=== PATIENT | female | born 1945 | race Caucasian/White ===

== ENCOUNTER 2020-12-27 07:27 | Day surgery (SDC) | payer OTHER ==
[~2020-12-27] VITALS: Ht 167.6 cm; Wt 91.3 kg
[~2020-12-27 07:27] MED LIST: ALLO300 PO; FURO40 PO; Isosorbide Mono30 MG PO; METO25ER PO; PRAV20 PO; Prinivil10 MG PO; SPIR25 PO
[2021-01-09] MEDS ORDERED: ASPI325EC PO (08:07)
== END 2020-12-27 09:39 | disposition home or self-care (01) ==
LOC: ORSCSDS 07:27
PROVIDERS: Ophthalmology
PROC: 08RJ3JZ Replacement of Right Lens with Synthetic Substitute, Percutaneous Approach (ICD-10-PCS; principal; 2020-12-27 09:00)
DX: H25.11 Age-related nuclear cataract, right eye (principal); G30.9 Alzheimer's disease, unspecified; F02.80 Dementia in other diseases classified elsewhere, unspecified severity, without behavioral disturbance, psychotic disturbance, mood disturbance, and anxiety; E78.00 Pure hypercholesterolemia, unspecified; Z87.891 Personal history of nicotine dependence; I10 Essential (primary) hypertension; I25.10 Atherosclerotic heart disease of native coronary artery without angina pectoris; Z79.899 Other long term (current) drug therapy
CPT/HCPCS: J2001; J2250; J3010; J3301; J7040; J7120; V2632

== ENCOUNTER 2021-01-17 06:18 | Day surgery (SDC) | payer OTHER ==
[~2021-01-17] VITALS: Ht 167.6 cm; Wt 92.7 kg
[~2021-01-17 06:18] MED LIST changes: +ASPI325EC PO
--- NOTE | 2021-01-17 06:34 | NUR ---
01/17/21 0634 Sae Polanco TETRACAINE 0633 APPLIED TO LEFT EYE
== END 2021-01-17 08:06 | disposition home or self-care (01) ==
LOC: ORSCSDS 06:18
PROVIDERS: Ophthalmology
PROC: 08RK3JZ Replacement of Left Lens with Synthetic Substitute, Percutaneous Approach (ICD-10-PCS; principal; 2021-01-17 07:30)
DX: H25.12 Age-related nuclear cataract, left eye (principal); I10 Essential (primary) hypertension; I25.10 Atherosclerotic heart disease of native coronary artery without angina pectoris; Z87.891 Personal history of nicotine dependence; G30.9 Alzheimer's disease, unspecified; F02.80 Dementia in other diseases classified elsewhere, unspecified severity, without behavioral disturbance, psychotic disturbance, mood disturbance, and anxiety; E78.00 Pure hypercholesterolemia, unspecified; Z79.899 Other long term (current) drug therapy; E66.9 Obesity, unspecified; Z68.33 Body mass index [BMI] 33.0-33.9, adult
CPT/HCPCS: A9270; J2001; J2250; J3010; J3301; V2632